=== PATIENT | male | born 1975 | race African-American/Black ===

== ENCOUNTER → 2019-08-27 | Outpatient (CLI) | payer OTHER ==
--- NOTE | 2019-08-27 18:14 | RAD ---
Examination: ELBOW RIGHT 2V History: Right elbow pain Comparison/Correlation: None Findings: 2 view right elbow x-ray exam was performed. Joint spaces are unremarkable. No displaced fracture. No fat-pad displacement to suggest joint effusion. A very small bony densities about the femoral condyles on the lateral view noted. These are indeterminate significance. Impression: No definite suspicious process. Electronically signed by: Van Choe MD (08/27/2019 6:11 PM) [facility]
== END | disposition home or self-care (01) ==
LOC: RAD 10:56
PROVIDERS: ATTEND Surgery
DX: M25.521 Pain in right elbow (principal)
CPT/HCPCS: 73070